=== PATIENT | male | born 1995 | race Two or more races ===

== ENCOUNTER 2019-01-10 08:19 | Emergency (ER) | payer SELFPAY ==
[~2019-01-10] VITALS: Ht 180.3 cm; Wt 79.4 kg
[2019-01-10] MEDS ORDERED: TETANUS-DIPTH-ACEL PERTUSSIS 0.5ML SYRG IM ONE (14:00)
[2019-01-10 14:54] VITALS: BP 121/90
== END 2019-01-10 16:04 | disposition home or self-care (01) ==
LOC: ER 08:25
DX: S90.812A Abrasion, left foot, initial encounter (principal); S90.811A Abrasion, right foot, initial encounter; R51 Headache; V43.62XA Car passenger injured in collision with other type car in traffic accident, initial encounter; Y93.89 Activity, other specified; Y99.8 Other external cause status; Y92.410 Unspecified street and highway as the place of occurrence of the external cause
CPT/HCPCS: 70450; 73590; 90471; 90715